=== PATIENT | male | born 1985 | race African-American/Black ===

== ENCOUNTER 2022-02-02 10:30 | Emergency (ER) | payer OTHER ==
[2022-02-02] MEDS ORDERED: HYDROcodone/Acetaminophen 5/325 mg Tablet ONE (12:12)
[2022-02-02 12:31] LABS: Bacteria/HPF None Seen HPF (None Seen); Bilirubin Negative (Negative); Blood, Urine Negative (Negative); Clarity Clear (Clear); Glucose, Urine (Dipstick) Normal (Negative); Ketone, Urine Negative (Negative); Leukocyte 25 Leu/uL (Negative); Nitrite Negative (Negative); Protein, Urine (Dipstick) 30 mg/dL (Neg-Trace); RBC/HPF 0-3 HPF (0-3); Specific Gravity, Urine 1.034 (1.002-1.036); Squamous Epithelial None Seen HPF (0-3); Urobilinogen Normal mg/dL (Less than 2); pH, Urine 6.5 (5.0-9.0)
[2022-02-02] MEDS ORDERED: Bupivacaine 0.25% 10 ML VIAL ONE (14:34)
== END 2022-02-02 15:15 | disposition home or self-care (01) ==
LOC: ERS 10:30
DX: L02.214 Cutaneous abscess of groin (principal)
CPT/HCPCS: 10060; 76870; 76999; 81003; 81015; 93976; S0020

== ENCOUNTER 2023-02-28 19:00 | Emergency (ER) | payer OTHER, SELFPAY ==
[2023-02-28] MEDS ORDERED: HYDROcodone/Acetaminophen 10/325 mg Tablet ONE (19:21)
[2023-02-28] MEDS ORDERED: HYDROcodone/Acetaminophen 5/325 mg Tablet ONE (19:25)
== END 2023-02-28 19:30 | disposition home or self-care (01) ==
LOC: ERS 19:00
DX: K03.81 Cracked tooth (principal); K02.9 Dental caries, unspecified
CPT/HCPCS: 99282